=== PATIENT | male | born 2000 | race Caucasian/White ===

== ENCOUNTER 2019-04-13 08:05 | Outpatient (CLI) | payer OTHER ==
--- NOTE | 2019-04-13 09:18 | CT ---
CT Abdomen Pelvis W Con HISTORY: Left lower quadrant pain. COMPARISON: None. FINDINGS: The lung bases are clear. The liver, spleen, pancreas and gallbladder regions appear unremarkable. Right and left adrenal glands and right and left kidneys are normal in size. There is no significant periaortic adenopathy. There are a few scattered small mesenteric lymph nodes which are nonspecific. CT of pelvis performed with contrast enhancement moderate amount of stool seen in the colon. No infla mmatory process. No pelvic lymphadenopathy or mass. Appendix region is unremarkable. Review of osseous structures show no significant bony findings. IMPRESSION: No acute findings of abdomen or pelvis.
== END 2019-04-13 08:06 | disposition home or self-care (01) ==
LOC: CT 08:05
PROVIDERS: ATTEND Internal Medicine Gastroenterology
DX: R10.32 Left lower quadrant pain (principal)
CPT/HCPCS: 74177; 74178